=== PATIENT | female | born 1995 | race Caucasian/White ===

== ENCOUNTER 2019-06-29 16:46 | Inpatient (IN) ==
[2019-06-29] MEDS ORDERED: ACETAMINOPHEN 1,000 MG/100 ML VIAL IV STA (17:29)
[2019-06-29] MEDS ORDERED: DiphenhydrAMINE HCL 50 MG/ML VIAL IV STA (17:29)
[2019-06-29] MEDS ORDERED: PROCHLORPERAZINE 2 ML IV ONE (17:29)
[2019-06-29] MEDS ORDERED: SODIUM CHLORIDE 0.9% 1000ML 2,000 ML IV ONE (17:30)
--- NOTE | 2019-06-29 17:42 | Emergency Department Note ---
Impression & Plan Lower gastrointestinal hemorrhage, Syncope, Symptomatic anemia, Left lower quadrant abdominal pain ED Provider Note NAME: REFUGIO DAO AGE: 23 SEX: F ARRIVES VIA: Walk-In INFORMANT: Patient, ED PROVIDER(S): Jai Guerrero MD CHIEF COMPLAINT: Syncope, rectal bleeding PLAN: Disposition: Admit MEDICAL DECISION MAKING: The patient is a pleasant 23-year-old woman who presents emergency department with repeat episode of syncope in the setting of persistent bright red blood per rectum after developing symptoms yesterday with acute onset abdominal pain and cramping last night where she presented to the emergency department and was noted to have red blood on rectal exam with mild anemia that was stable, unremarkable CT scan of the abdomen pelvis, and improvement after IV fluid hydration with discharge with plan for outpatient follow-up. The patient reports this afternoon she was walking to the kitchen to get something to drink but became near syncopal and almost passed out but was able to sit down before this. However, at this time her friends and roommates helped walker to their car to drive her to the emergency department and in the process she reports she passed out as they were holding her and awoke as they were carrying her and lifting her into the car. The patient reports a remote history of heavy menstrual cycles approximately 6 years ago but has been on control ever since and reports her cycles are regular and normal in volume. She reports her last menstrual cycle was a month ago and she is due for her cycle at any time. She denies any family history of inflammatory bowel disease such as Crohn's or ulcerative colitis. She does say she has a history of intermittent abdominal pain and cramping but she has never actually had blood from her rectum. Prior to yesterday she reports she has been feeling healthy and denies any fevers, chills, cough, congestion, nausea, vomiting, diarrhea, urinary symptoms. On arrival the patient is fatigued and pale appearing but no acute distress, afebrile with heart rate in the 120s and vital signs otherwise stable. Patient appears clinically dry. She does have mild pallor to her skin which is warm and dry. Has no focal neuro deficits. She has mild left lower quadrant discomfort without discrete tenderness. There is no guarding or rebound. WBC and platelets within normal limits. H/H 7.8/23.0 downtrending from her initial H/H yesterday of 10.9/32.2 at 2 AM in the morning. Chemistry without acidosis. BUN within normal limits. Lactate 1.8 within normal limits. Calcium is low at 7.4 similar to yesterday. Electrolytes and LFTs otherwise unremarkable. ESR within normal limits with CRP elevated at 3.25. LDH within normal limits. Iron studies unremarkable. The patient's persistent rectal bleeding with symptomatic anemia/syncope reasonable to proceed with transfusion and admission for GI consultation. Suspect likely lower GI bleed given lack of melena and presence of lower abdominal pain. Patient was consented and the patient's evaluation and findings were discussed with the patient's mother who also agrees with plan for transfusion and admission. Of note, the mother reports that they are driving to [place] from [facility] where they live. They report they have remained in home quarantine/isolation and do not have any symptoms despite the high numbers of COVID-19 within their County. I did explain that ability to see their daughter will be quite limited and potentially not possible inpatient. Case was discussed with SREEDHAR Alvarado admitting resident with ISABELL Ortiz hospitalist, who will evaluate the patient for admission. Triage Nursing notes reviewed and agree them. Prior medical records reviewed Vital Signs: reviewed and remarkable for tachycardia. Differential diagnosis: Diverticulosis, AVM, coagulopathy, colitis, inflammatory bowel disease, malignancy, Carolyn-Myles tear, esophagitis, peptic ulcer disease, variceal bleed, gastritis, epistaxis, fissure, hemorrhoids, as well as other pathologies. ER treatment provided: See below. Diagnostics interpreted by me: ECG: Sinus tachycardia, 109 bpm, no ectopy. Nonspecific ST abnormality otherwise no overt ST elevation or depression. QTc 455, QRS 70. Cardiac Monitoring: An order for continuous cardiac monitoring was placed and demonstrated sinus tachycardia, 109, no ectopy. Laboratory studies: See below Imaging studies: XR chest 1V portable CLINICAL HISTORY: syncope dyspnea COMPARISON STUDY: No previous studies for comparison. FINDINGS: The bones soft tissues and hemidiaphragms are normal. The cardiomediastinal silhouette is normal. The lungs are clear. The pulmonary vasculature is normal. IMPRESSION: Negative chest. Consultation(s): Case was discussed with SREEDHAR Alvarado admitting resident with SREEDHAR Ortiz hospitalist, who will evaluate the patient for admission. HPI: The patient is a pleasant 23-year-old woman who presents emergency department with repeat episode of syncope in the setting of persistent bright red blood per rectum after developing symptoms yesterday with acute onset abdominal pain and cramping last night where she presented to the emergency department and was noted to have red blood on rectal exam with mild anemia that was stable, unremarkable CT scan of the abdomen pelvis, and improvement after IV fluid hydration with discharge with plan for outpatient follow-up. The patient reports this afternoon she was walking to the kitchen to get something to drink but became near syncopal and almost passed out but was able to sit down before this. However, at this time her friends and roommates helped walker to their car to drive her to the emergency department and in the process she reports she passed out as they were holding her and awoke as they were carrying her and lifting her into the car. The patient reports a remote history of heavy menstrual cycles approximately 6 years ago but has been on control ever since and reports her cycles are regular and normal in volume. She reports her last menstrual cycle was a month ago and she is due for her cycle at any time. She denies any family history of inflammatory bowel disease such as Crohn's or ulcerative colitis. She does say she has a history of intermittent abdominal pain and cramping but she has never actually had blood from her rectum. Prior to yesterday she reports she has been feeling healthy and denies any fevers, chills, cough, congestion, nausea, vomiting, diarrhea, urinary symptoms. ROS: See above HPI for pertinent positives & negatives. A total of 10 systems reviewed and were otherwise negative. PAST MEDICAL HISTORY:See Below PAST SURGICAL HISTORY:See Below FAMILY HISTORY:See Below SOCIAL HISTORY:See Below HOME MEDICATIONS:See Below ALLERGIES:See Below VITALS:See Below PHYSICAL EXAMINATION: GENERAL: Awake, alert, fatigued/pale-appearing, in no distress HENT: Normocephalic, atraumatic. Oropharynx with dry mucous membranes and otherwise unremarkable. EYES: Pale conjunctiva. Sclera non-icteric. NECK: Supple. No nuchal rigidity. FROM. No JVD. RESPIRATORY: Clear to auscultation. CARDIAC: Tachycardic rate, normal rhythm. Extremities warm and well perfused. Pulses equal. ABDOMEN: Soft, non-distended. Mild discomfort to the LLQ without discrete tenderness to palpation. No rebound or guarding. No masses. RECTAL: Gross red blood without severe hemorrhage. No melena. MUSCULOSKELETAL: Chest examination reveals no tenderness. The back is symme trical on inspection without obvious abnormality. There is no CVA tenderness to palpation. No joint edema. LOWER EXTREMITIES: Calves are equal size bilaterally and non-tender. No edema. No discoloration. NEURO: Normal sensorium. No sensory or motor deficits noted. 5/5 strength and SILT x 4 extremities. Cerebellar function intact including [id number], alternating palms, [id number]. SKIN: No rash or jaundice noted. ED COURSE: Critical Care: I have personally spent greater than 45 minutes of critical care time in the direct management of this patient. This includes bedside care, interpretation of diagnostic studies, and testing, discussion with consultants, patient, and family members, and other required patient management activities. This 45 minutes is in excess of all separately billable procedures. Jai Guerrero MD Past Med/Surg History Medical History No significant past medical history Surgical History History of knee surgery Social History Preferred Language: Kazakh Communication Ability: Effective Inverted Block Operator Required: No Beliefs That Will Affect Care: None Current Living Situation: Other Current Living Situation Comment: roommate here, moving home with family soon Other Information That Helps Us Care for You: No Feels Safe at Home: Yes Safety Concerns: Feels Safe At This Time Smoking Status: Never smoker Do You Dip or Chew Tobacco: No ; Second Hand Exposure: No ; Tobacco Cessation Education Requested by Patient: No Hx Alcohol Use: Yes Alcohol type: wine and hard liquor Hx Substance Use: No Allergies Allergies Allergy/AdvReac Type Severity Reaction Status Date / Time No Known Allergies Allergy Verified 06/29/19 17:51 Home Meds Home Medications Medication Instructions Recorded Confirmed norethindrone-e.estradiol-iron 1 tab PO DAILY 06/29/19 06/29/19 [Mibelas 24 Fe] Results & Data (ED) Vital Signs Vital Signs - 24 hr 06/29/19 16:54 06/29/19 18:15 06/29/19 18:26 Temperature 36.7 C Temperature Source Oral Pulse Rate 123 H 134 H 90 Pulse Rate from SpO2 Sensor Pulse Rhythm Regular Respiratory Rate 16 17 20 Respiratory Effort / Characteristics Non-Labored Spontaneous Respiratory Depth Normal Blood Pressure 110/70 124/72 Blood Pressure Mean 83 89 Blood Pressure Position Sitting Pulse Oximetry 99 100 99 Oxygen Delivery Method Room Air Room Air Room Air Sepsis Recent Fever Within 48 Hours No Sepsis New/Unexplained Change in Mental Status No Sepsis Action Taken by Nursing No Action Required 06/29/19 18:30 06/29/19 19:00 06/29/19 19:30 Temperature Temperature Source Pulse Rate 89 88 117 H Pulse Rate from SpO2 Sensor 91 H 90 119 H Pulse Rhythm Respiratory Rate 13 15 17 Respiratory Effort / Characteristics Respiratory Depth Blood Pressure 122/67 118/62 133/72 Blood Pressure Mean 93 73 88 Blood Pressure Position Pulse Oximetry 100 100 99 Oxygen Delivery Method Room Air Room Air Room Air Sepsis Recent Fever Within 48 Hours Sepsis New/Unexplained Change in Mental Status Sepsis Action Taken by Nursing 06/29/19 19:40 Temperature Temperature Source Pulse Rate 108 H Pulse Rate from SpO2 Sensor 106 H Pulse Rhythm Respiratory Rate 19 Respiratory Effort / Characteristics Respiratory Depth Blood Pressure 129/68 Blood Pressure Mean 83 Blood Pressure Position Pulse Oximetry 99 Oxygen Delivery Method Room Air Sepsis Recent Fever Within 48 Hours Sepsis New/Unexplained Change in Mental Status Sepsis Action Taken by Nursing Laboratory Data Attestation: I reviewed the patient's lab results. Result diagrams: 06/29/19 21:35 06/29/19 17:34 Lab Results 06/29/19 06/29/19 06/29/19 Range/Units 17:34 17:34 17:34 WBC 8.87 (4.8-10.8) K/uL RBC 2.48 L (4.2-5.4) M/uL Hgb 7.8 L (12.0-16.0) g/dL Hct 23.0 L (37-47) % MCV 92.7 (80-100) fL MCH 31.5 (25-34) pg MCHC 33.9 (32-36) g/dL RDW Std Deviation 42.6 (36.4-46.3) fL RDW Coeff of Gertrudis 12.4 (11.5-14.5) % Plt Count 201 (130-400) K/uL MPV 9.7 (7.4-10.4) fL Immature Gran % (Auto) 0.1 % Neut % (Auto) 76.5 % Lymph % (Auto) 15.2 % [place] % (Auto) 7.7 % Eos % (Auto) 0.3 % Baso % (Auto) 0.2 % Immature Gran # (Auto) 0.01 (0.00-0.02) K/uL Neut # (Auto) 6.78 H (1.4-6.5) K/uL Lymph # (Auto) 1.35 (1.2-3.4) K/uL [place] # (Auto) 0.68 H (0.11-0.59) K/uL Eos # (Auto) 0.03 (0-0.5) K/uL Baso # (Auto) 0.02 (0-0.2) K/uL RBC Morphology Unremarkable ESR (0-21) mm/hr PT (9.0-12.0) Seconds INR (0.9-1.1) Sodium 140 (136-145) mmol/L Potassium 3.7 (3.5-5.1) mmol/L Chloride 111 H (98-107) mmol/L Carbon Dioxide 21 (21-32) mmol/L Anion Gap 7.0 (3-11) BUN 11 (7-18) mg/dl Creatinine 0.84 (0.6-1.2) mg/dl Est Cr Clr Drug Dosing Not Reportable Est GFR ( Amer) 115.1 Est GFR (Non-Af Amer) 99.4 BUN/Creatinine Ratio 13.0 (10-20) Glucose 119 H (70-99) mg/dl Lactate (0.4-2.0) mmol/L Calcium 7.4 L (8.5-10.1) mg/dl Phosphorus 2.9 (2.5-4.9) mg/dl Magnesium 1.9 (1.8-2.4) mg/dl Iron 108 (35-150) mcg/dl TIBC 285 (250-450) mcg/dl Transferrin 236 (200-360) mg/dl Ferritin 8.7 (8-388) ng/ml Total Bilirubin 0.3 (0.2-1) mg/dl Direct Bilirubin < 0.1 (0-0.2) mg/dl AST 11 L (15-37) U/L ALT 15 (12-78) U/L Alkaline Phosphatase 66 (45-117) U/L Lactate Dehydrogenase (84-246) U/L C-Reactive Protein 3.25 H (0-0.29) mg/dl Total Protein 5.5 L (6.4-8.2) gm/dl Albumin 2.7 L (3.4-5.0) gm/dl Globulin 2.8 (2.5-4.0) gm/dl Albumin/Globulin Ratio 1.0 (0.9-2) Lipase 93 (73-393) U/L TSH 1.390 (0.300-4.500) uIu/ml HCG, Qual (Negative) Blood Type O Negative Blood Type Recheck Antibody Screen NEGATIVE Crossmatch See Detail 06/29/19 06/29/19 06/29/19 Range/Units 17:34 17:34 17:34 WBC (4.8-10.8) K/uL RBC (4.2-5.4) M/uL Hgb (12.0-16.0) g/dL Hct (37-47) % MCV (80-100) fL MCH (25-34) pg MCHC (32-36) g/dL RDW Std Deviation (36.4-46.3) fL RDW Coeff of Gertrudis (11.5-14.5) % Plt Count (130-400) K/uL MPV (7.4-10.4) fL Immature Gran % (Auto) % Neut % (Auto) % Lymph % (Auto) % [place] % (Auto) % Eos % (Auto) % Baso % (Auto) % Immature Gran # (Auto) (0.00-0.02) K/uL Neut # (Auto) (1.4-6.5) K/uL Lymph # (Auto) (1.2-3.4) K/uL [place] # (Auto) (0.11-0.59) K/uL Eos # (Auto) (0-0.5) K/uL Baso # (Auto) (0-0.2) K/uL RBC Morphology ESR 2 (0-21) mm/hr PT 11.3 (9.0-12.0) Seconds INR 1.1 (0.9-1.1) Sodium (136-145) mmol/L Potassium (3.5-5.1) mmol/L Chloride (98-107) mmol/L Carbon Dioxide (21-32) mmol/L Anion Gap (3-11) BUN (7-18) mg/dl Creatinine (0.6-1.2) mg/dl Est Cr Clr Drug Dosing Est GFR ( Amer) Est GFR (Non-Af Amer) BUN/Creatinine Ratio (10-20) Glucose (70-99) mg/dl Lactate (0.4-2.0) mmol/L Calcium (8.5-10.1) mg/dl Phosphorus (2.5-4.9) mg/dl Magnesium (1.8-2.4) mg/dl Iron (35-150) mcg/dl TIBC (250-450) mcg/dl Transferrin (200-360) mg/dl Ferritin (8-388) ng/ml Total Bilirubin (0.2-1) mg/dl Direct Bilirubin (0-0.2) mg/dl AST (15-37) U/L ALT (12-78) U/L Alkaline Phosphatase (45-117) U/L Lactate Dehydrogenase 157 (84-246) U/L C-Reactive Protein (0-0.29) mg/dl Total Protein (6.4-8.2) gm/dl Albumin (3.4-5.0) gm/dl Globulin (2.5-4.0) gm/dl Albumin/Globulin Ratio (0.9-2) Lipase (73-393) U/L TSH (0.300-4.500) uIu/ml HCG, Qual (Negative) Blood Type Blood Type Recheck Antibody Screen Crossmatch 06/29/19 06/29/19 06/29/19 Range/Units 17:34 17:49 19:42 WBC (4.8-10.8) K/uL RBC (4.2-5.4) M/uL Hgb (12.0-16.0) g/dL Hct (37-47) % MCV (80-100) fL MCH (25-34) pg MCHC (32-36) g/dL RDW Std Deviation (36.4-46.3) fL RDW Coeff of Gertrudis (11.5-14.5) % Plt Count (130-400) K/uL MPV (7.4-10.4) fL Immature Gran % (Auto) % Neut % (Auto) % Lymph % (Auto) % [place] % (Auto) % Eos % (Auto) % Baso % (Auto) % Immature Gran # (Auto) (0.00-0.02) K/uL Neut # (Auto) (1.4-6.5) K/uL Lymph # (Auto) (1.2-3.4) K/uL [place] # (Auto) (0.11-0.59) K/uL Eos # (Auto) (0-0.5) K/uL Baso # (Auto) (0-0.2) K/uL RBC Morphology ESR (0-21) mm/hr PT (9.0-12.0) Seconds INR (0.9-1.1) Sodium (136-145) mmol/L Potassium (3.5-5.1) mmol/L Chloride (98-107) mmol/L Carbon Dioxide (21-32) mmol/L Anion Gap (3-11) BUN (7-18) mg/dl Creatinine (0.6-1.2) mg/dl Est Cr Clr Drug Dosing Est GFR ( Amer) Est GFR (Non-Af Amer) BUN/Creatinine Ratio (10-20) Glucose (70-99) mg/dl Lactate 1.8 (0.4-2.0) mmol/L Calcium (8.5-10.1) mg/dl Phosphorus (2.5-4.9) mg/dl Magnesium (1.8-2.4) mg/dl Iron (35-150) mcg/dl TIBC (250-450) mcg/dl Transferrin (200-360) mg/dl Ferritin (8-388) ng/ml Total Bilirubin (0.2-1) mg/dl Direct Bilirubin (0-0.2) mg/dl AST (15-37) U/L ALT (12-78) U/L Alkaline Phosphatase (45-117) U/L Lactate Dehydrogenase (84-246) U/L C-Reactive Protein (0-0.29) mg/dl Total Protein (6.4-8.2) gm/dl Albumin (3.4-5.0) gm/dl Globulin (2.5-4.0) gm/dl Albumin/Globulin Ratio (0.9-2) Lipase (73-393) U/L TSH (0.300-4.500) uIu/ml HCG, Qual Negative (Negative) Blood Type Blood Type Recheck O Negative Antibody Screen Crossmatch Administered Medications Pantoprazole Sodium 40 mg/ (Dextrose) 100 mls @ 20 mls/hr IV Q5H ELVIRA Stop: 07/29/19 20:44 Last Admin: 06/29/19 23:24 Dose: 8 mg/hr, 20 mls/hr Documented by: [id number] Sodium Chloride (Nss 1000ml) 1,000 mls @ 125 mls/hr IV .Q8H ELVIRA Stop: 07/29/19 21:13 Last Admin: 06/29/19 21:53 Dose: 125 mls/hr Documented by: [id number] Miscellaneous (Order Awaiting Action) 1 ea N/A QS ELVIRA Stop: 07/30/19 00:00 Last Admin: 06/29/19 23:27 Dose: Not Given Documented by: [id number] Discontinued Medications Diphenhydramine HCl (Benadryl) 25 mg IV NOW STA Stop: 06/29/19 17:30 Last Admin: 06/29/19 18:04 Dose: 25 mg Documented by: [id number] Prochlorperazine (Compazine) 2 mls @ 1 mls/min IV ONE ONE Stop: 06/29/19 17:30 Last Admin: 06/29/19 18:04 Dose: 1 mls/min Documented by: [id number] Acetaminophen (Ofirmev) 1,000 mg in 100 mls @ 400 mls/hr IV NOW STA Stop: 06/29/19 17:43 Last Infusion: 06/29/19 18:24 Dose: 0 mls/hr Documented by: [id number] Admin: 06/29/19 18:04 Dose: 400 mls/hr Documented by: [id number] Sodium Chloride (Nss 1000ml) 2,000 mls @ 999 mls/hr IV .Q2H1M ONE Stop: 06/29/19 19:30 Last Infusion: 06/29/19 19:51 Dose: 0 mls/hr Documented by: [id number] Admin: 06/29/19 18:04 Dose: 999 mls/hr Documented by: [id number] Famotidine (Pepcid 20mg Iv Push) 20 mg in 5 mls @ 2.5 mls/min IV NOW STA Stop: 06/29/19 18:54 Last Admin: 06/29/19 19:02 Dose: 2.5 mls/min Documented by: [id number] Blood Pressure Blood Pressure Findings: Normal blood pressure Discharge Plan Visit Data *Final* Discharge Date/Time: 06/29/19 21:00 Chief Complaint: GI Bleed Stated Complaint: gi bleed, fainting ED Provider: Jai Guerrero Discharge Problem: Lower gastrointestinal hemorrhage, Syncope, Symptomatic anemia, Left lower quadrant abdominal pain Patient Disposition: Admitted As Inpatient Discharge Instructions Interventions: ED Discharge Assessment Last Done: 06/29/19 21:00 Discharge Problem: Syncope Qualifiers: Syncope type: unspecified Qualified Code(s): R55 - Syncope and collapse
[2019-06-29 18:00] LABS: Basophils # (auto) 0.02 K/uL (0-0.2); Basophils % (auto) 0.2 %; Eosinophils # (auto) 0.03 K/uL (0-0.5); Eosinophils % (auto) 0.3 %; Hemoglobin 7.8 g/dL (12.0-16.0); Immature Granulocytes # (auto) 0.01 K/uL (0.00-0.02); Immature Granulocytes % (auto) 0.1 %; Lymphocytes # (auto) 1.35 K/uL (1.2-3.4); Lymphocytes % (auto) 15.2 %; Mean Corpuscular Hemoglobin 31.5 pg (25-34); Mean Corpuscular Hgb Conc 33.9 g/dL (32-36); Mean Corpuscular Volume 92.7 fL (80-100); Mean Platelet Volume 9.7 fL (7.4-10.4); Monocytes # (auto) 0.68 K/uL (0.11-0.59); Monocytes % (auto) 7.7 %; Neutrophils # (auto) 6.78 K/uL (1.4-6.5); Neutrophils % (auto) 76.5 %; Platelet Count 201 K/uL (130-400); RDW Coefficient of Variation 12.4 % (11.5-14.5); RDW Standard Deviation 42.6 fL (36.4-46.3); Red Blood Count 2.48 M/uL (4.2-5.4); White Blood Count 8.87 K/uL (4.8-10.8)
[2019-06-29 18:11] LABS: INR 1.1 (0.9-1.1); Prothrombin Time 11.3 Seconds (9.0-12.0)
[2019-06-29 18:23] LABS: Pregnancy Test, Serum Negative (Negative)
[2019-06-29 18:24] LABS: RBC Morphology Unremarkable
[2019-06-29 18:26] LABS: Alanine Aminotransferase 15 U/L (12-78); Albumin Level 2.7 gm/dl (3.4-5.0); Aspartate Aminotransferase 11 U/L (15-37); Bilirubin Direct < 0.1 mg/dl (0-0.2); Blood Urea Nitrogen 11 mg/dl (7-18); C Reactive Protein 3.25 mg/dl (0-0.29); Calcium 7.4 mg/dl (8.5-10.1); Carbon Dioxide 21 mmol/L (21-32); Chloride 111 mmol/L (98-107); Est GFR (African American) 115.1; Est GFR (Non-African American) 99.4; Glucose 119 mg/dl (70-99); Iron 108 mcg/dl (35-150); Lipase 93 U/L (73-393); Magnesium 1.9 mg/dl (1.8-2.4); Phosphorus 2.9 mg/dl (2.5-4.9); Potassium 3.7 mmol/L (3.5-5.1); Sodium 140 mmol/L (136-145)
--- NOTE | 2019-06-29 18:27 | XRay Report ---
XR chest 1V portable CLINICAL HISTORY: syncope dyspnea COMPARISON STUDY: No previous studies for comparison. FINDINGS: The bones soft tissues and hemidiaphragms are normal. The cardiomediastinal silhouette is n ormal. The lungs are clear. The pulmonary vasculature is normal. IMPRESSION: Negative chest. ACT 112: Negative or not required by law. The above report was generated using voice recognition software. It may contain grammatical, syntax or spelling errors. Electronically signed by: Joshua Baez M.D. 06/29/2019 6:26 PM
[2019-06-29 18:36] LABS: Alkaline Phosphatase 66 U/L (45-117); Bilirubin,Total 0.3 mg/dl (0.2-1); Ferritin 8.7 ng/ml (8-388); Globulin 2.8 gm/dl (2.5-4.0); Total Iron Binding Capacity 285 mcg/dl (250-450); Total Protein 5.5 gm/dl (6.4-8.2); Transferrin 236 mg/dl (200-360)
[2019-06-29] MEDS ORDERED: SODIUM CHLORIDE 0.9% 250 ML IV PRN (18:52)
[2019-06-29] MEDS ORDERED: FAMOTIDINE 20MG IV PUSH 20 MG/5 ML SYR IV STA (18:53)
--- NOTE | 2019-06-29 20:14 | History & Physical Report ---
Date of Service June 29, 2019 Assessment & Plan (1) Bright red rectal bleeding: Ms. Malik is a 23-year-old woman with otherwise insignificant past medical history who is here with 1 day of GI bleeding Bright red blood per rectum Patient with GI bleed starting last night Hemoglobin dropped from10.9-7.8 over the last 15 hours Patient no longer having bloody bowel movements, but does still have some bright red blood on rectal exam In this patient who initially had abdominal pain which is now resolved differential includes diverticulosis, diverticulitis, infectious cause (E hack, Shigella, C. difficile), AVM, hemorrhoidal bleeding, inflammatory bowel disease or brisk upper GI bleed Labwork significant for anemia 7.8 elevated CRP of 3.25 hypoalbuminemia of 2.7 and a - test C. difficile, stool culture, stool white blood cell, PTT pending 2 large-bore IVs placed, 3 units crossed transfusing 1 now Protonix drip ordered GI consulted for a.m. as patient appears to be relatively stable We will get every 4 hour H&H's and watch vital signs closely. Orthostatics ordered on admission to the floor Patient will be admitted to med telemetry DVT prophylaxis: SCDs F/C/N: Normal saline 100 mils per hour Disposition: Admit to med telemetry, every 4 hours H&H, waiting GI consult in a.m., if patient were to clinically deteriorate we will get stat GI consult tonight (2) Syncope: History of Present Illness Chief Complaint: Rectal Bleeding Primary Care Provider: NO PCP Alicia Andrade is a 23 year old woman with a past medical history significant only for a torn ACL which was operated on without incident and heavy periods which were corrected several years ago by going on control pill. She is he re today for rectal bleeding. Last night around eight o clock she was in in her usual state of health when she had an episode of abdominal pain across the entirety of her abdomen. She tried to sleep it off but woke up around 11 pm and went to the bathroom. She then suffered a syncopal episode and felt very light headed continuously on getting up. When she made it to the bathroom she felt nauseous and like she had diarrhea, but when she checked the toilet bowl it was a large amount of blood. Her abdominal pain was relieved by this passage and she came into the emergency department. Hemoglobin was found to be in the 10's and in the high nines a short time later and she was sent home with planned GI follow up. CT abdomen was negative. She then had a subsequent bloody bowel movement today and continues to feel lightheaded on standing. She denies any anal intercourse or penetration nor any vaginal intercourse, no vaginal bleeding, last menstruation was one month ago due for next tomorrow. No history of bleeding or dark stools ever before. No known history of hemorrhoids. She denies any other symptoms at this time, no abdominal pain, no nausea, no vomiting, no trouble with her breathing, fever, chills, no chest pain, no leg or hand swelling, no change in her urination, no hematuria, no bruising or other bleeding, no history of bleeding issues. Allergies Allergy/AdvReac Type Severity Reaction Status Date / Time No Known Allergies Allergy Verified 06/29/19 17:51 Home Medications Home Medications Medication Instructions Recorded Confirmed Type norethindrone-e.estradiol-iron 1 tab PO DAILY 06/29/19 06/29/19 History [Mibelas 24 Fe] Past Med/Surg History Medical History No significant past medical history Surgical History History of knee surgery History of third molar tooth extraction S/P ACL repair Social History Preferred Language: Thai Communication Ability: Effective Microchip Specialist Required: No Beliefs That Will Affect Care: None Current Living Situation: Other Current Living Situation Comment: roommate here, moving home with family soon Other Information That Helps Us Care for You: No Feels Safe at Home: Yes Safety Concerns: Feels Safe At This Time Smoking Status: Never smoker Do You Dip or Chew Tobacco: No ; Second Hand Exposure: No ; Tobacco Cessation Education Requested by Patient: No Hx Alcohol Use: Yes Alcohol type: wine and hard liquor Hx Substance Use: No Review of Systems Review of Systems: All systems reviewed & are unremarkable except as noted in HPI & below Physical Exam Physical Exam: Constitutional: Pale fatigued appearing young woman lying in bed in no apparent distress Eyes: NAD ENMT: None detected Neck: Supple no masses, no JVD appreciated Respiratory: No increased work of breathing, no accessory muscle use, lung sounds vesicular throughout the lung holcomb Cardiovascular: Holosystolic murmur present, tachycardic regular rhythm, no lower limb edema, peripheral pulses tachycardic but equal bilaterally Gastrointestinal: Abdomen soft nontender, normal bowel sounds, no masses, patient with some suprapubic discomfort however patient tells me is because I am pressing on her full bladder Skin: Peripheries warm, no wounds or lesions visible Neuro: Patient alert oriented x4, no focal deficits Psych: Appropriate mood and affect Results & Data Results & Data ([facility]) Vital Signs (Past 12 Hours) Vital Signs Temp Pulse Resp BP Pulse Ox 06/29/19 19:40 108 H 19 129/68 99 06/29/19 19:30 117 H 17 133/72 99 06/29/19 19:00 88 15 118/62 100 06/29/19 18:30 89 13 122/67 100 06/29/19 18:26 90 20 99 06/29/19 18:15 134 H 17 124/72 100 06/29/19 16:54 36.7 C 123 H 16 110/70 99 Code Status & VTE Plan VTE Prophylaxis Plan VTE Prophylaxis will be ordered: Yes Supervising Physician Co-Signing Physician Notes Attending addendum: I have physically seen this patient, have supervised the medical residents activities, and agree with the H&P unless as otherwise noted. Assessment and Plan: Bright red blood per rectum/symptomatic anemia- Admit to telemetry for close monitoring of blood pressure and heart rate. H&H every 6 hours NPO IV fluids Send stool for culture, C. difficile, WBCs and foodborne toxins. Protonix IV. Consult gastroenterology. Remainder of orders and notations as noted. Resident Activity Tracking Resident Involvement: Resident Care Provided Care Provided: Adult Hospital Medicine (1) Syncope Syncope type: unspecified Qualified Code(s): R55 - Syncope and collapse
[2019-06-29 20:58] LABS: Appearance Urine Cloudy (Clear); Bacteria Urine Automated Negative (Negative); Bilirubin Urine Negative (Negative); Blood Urine Negative (Negative); Color Urine Yellow; Epithelial Cell Urine Auto 0-5 /lpf (0-5); Glucose Urine UA Negative (Negative); Ketones Urine Negative (Negative); Leukocyte Esterase Urine Negative (Negative); Nitrite Urine Negative (Negative); Protein Urine Negative (Negative); RBC Urine Automated 0-4 /hpf (0-4); Specific Gravity Urine 1.012 (1.000-1.030); Urobilinogen Urine Negative (Negative)
[2019-06-29] MEDS: SODIUM CHLORIDE 0.9% 1000ML 1,000 ML IV SCH (21:53)
[2019-06-29 21:56] LABS: Partial Thromboplastin Ratio 0.8; Partial Thromboplastin Time 23.6 Seconds (21.0-31.0)
[2019-06-29 21:59] LABS: Hematocrit (blood only) 19.5 % (37-47); Hemoglobin 6.5 g/dL (12.0-16.0)
[2019-06-29] MEDS: PANTOprazole 40 MG in DEXTROSE 5% 100 ML IV SCH (23:24)
[2019-06-30] MEDS ORDERED: Nursing to Pharmacy Communication ONE (00:24)
[2019-06-30] MEDS: PANTOprazole 40 MG in DEXTROSE 5% 100 ML IV SCH ×2 (04:01→08:25)
[2019-06-30] MEDS: SODIUM CHLORIDE 0.9% 1000ML 1,000 ML IV SCH ×3 (05:48→22:25)
[2019-06-30 05:50] LABS: Basophils # (auto) 0.01 K/uL (0-0.2); Basophils % (auto) 0.2 %; Eosinophils # (auto) 0.07 K/uL (0-0.5); Eosinophils % (auto) 1.2 %; Hematocrit (blood only) 21.5 % (37-47); Hemoglobin 7.4 g/dL (12.0-16.0); Immature Granulocytes # (auto) 0.01 K/uL (0.00-0.02); Immature Granulocytes % (auto) 0.2 %; Lymphocytes # (auto) 2.17 K/uL (1.2-3.4); Lymphocytes % (auto) 37.2 %; Mean Corpuscular Hemoglobin 31.6 pg (25-34); Mean Corpuscular Hgb Conc 34.4 g/dL (32-36); Mean Corpuscular Volume 91.9 fL (80-100); Mean Platelet Volume 9.4 fL (7.4-10.4); Monocytes # (auto) 0.55 K/uL (0.11-0.59); Monocytes % (auto) 9.4 %; Neutrophils # (auto) 3.02 K/uL (1.4-6.5); Neutrophils % (auto) 51.8 %; Platelet Count 121 K/uL (130-400); RDW Coefficient of Variation 13.4 % (11.5-14.5); RDW Standard Deviation 45.1 fL (36.4-46.3); Red Blood Count 2.34 M/uL (4.2-5.4); White Blood Count 5.83 K/uL (4.8-10.8)
[2019-06-30 06:10] LABS: RBC Morphology Unremarkable
--- NOTE | 2019-06-30 08:43 | Gastrointestinal Consultation ---
Date of Consultation June 30, 2019 Assessment & Plan (1) Bright red rectal bleeding: (2) Acute blood loss anemia: (3) Abdominal pain, diffuse: Continue Protonix gtt at 8 mg/hr Proceed with emergent EGD now Transfuse to maintain H/H around 8/24 Continue supportive care History of Present Illness Reason for Consultation: Acute blood loss anemia GI bleed Attending Physician: Gustavo Velez DO History of Present Illness Alicia Andrade is a 23 yo female whit no significant PMHx who presented to the ER with syncope, abdominal pain and acute blood loss anemia with large bloody BM's. On initial presentation her Hgb was 10.9, however repeat showed a level as low as 6.5. She described 10/10 abdominal pain, diffuse, non-radiating without alleviating or exacerbating factors. She did have multiple syncopal episodes in the past [address] scan of the Abd/Pelvis in the ER was unremarkable. She denies any NSAID use. She was admitted, transfused 2 u PRBC's, given IVF, and started on a Protonix gtt. At the time I saw her this AM, she denies any abdominal pain, fevers, chills, nausea, vomiting, hematemesis or further bloody BM's since her arrival. She denies any chronic abdominal symptoms. She has no further complaints. Allergies Allergy/AdvReac Type Severity Reaction Status Date / Time No Known Allergies Allergy Verified 06/29/19 17:51 Home Medications Home Medications Medication Instructions Recorded Confirmed Type norethindrone-e.estradiol-iron 1 tab PO DAILY 06/29/19 06/29/19 History [Mibelas 24 Fe] Patient History Medical History (Updated 06/30/19 @ 09:12 by Susu Baker MD) No significant past medical history Surgical History (Updated 06/30/19 @ 09:14 by Reji Chicas DO) History of knee surgery History of third molar tooth extraction S/P ACL repair Social History Preferred Language: [place] Communication Ability: Effective Maintenance Helper Required: No Beliefs That Will Affect Care: None Current Living Situation: Other Current Living Situation Comment: roommate here, moving home with family soon Other Information That Helps Us Care for You: No Feels Safe at Home: Yes Safety Concerns: Feels Safe At This Time Smoking Status: Never smoker Do You Dip or Chew Tobacco: No ; Second Hand Exposure: No ; Tobacco Cessation Education Requested by Patient: No Hx Alcohol Use: Yes Alcohol type: wine and hard liquor Hx Substance Use: No Review of Systems Review of Systems: All systems reviewed & are unremarkable except as noted in HPI & below Physical Exam Constitutional: WD/WN, vitals as above Eyes: PERRL, conjunctivae normal, anicteric sclerae ENMT: external ear and nose normal, oropharynx normal Neck: trachea midline, no thyromegaly Respiratory: normal respiratory effort, lungs clear to auscultation Cardiovascular: RRR, no murmur, no edema Gastrointestinal (Abdomen): normal bowel sounds, soft, nontender, no hepatosplenomegaly Skin: no rashes, warm and dry Psychiatric: A+Ox3, euthymic affect Results & Data ([facility]) Vital Signs (Past 12 Hours) Vital Signs Temp Pulse Pulse Resp BP BP BP 06/30/19 07:24 83 06/30/19 07:13 37 C 98 H 16 112/70 06/30/19 03:12 37 C 105 H 16 109/69 06/30/19 02:55 36.8 C 102 H 18 111/72 06/30/19 01:55 37.2 C 105 H 17 107/71 06/30/19 01:25 37.6 C H 97 H 18 111/73 06/30/19 01:08 37.0 C 92 H 16 117/68 06/30/19 00:53 37.1 C 99 H 16 114/73 06/30/19 00:48 37 C 107 H 16 122/75 06/30/19 00:40 37 C 107 H 18 122/75 06/30/19 00:10 37 C 107 H 18 122/75 06/29/19 23:40 36.8 C 101 H 18 119/80 06/29/19 23:10 36.7 C 101 H 99 H 17 119/77 119/77 06/29/19 22:40 36.7 C 99 H 18 125/79 06/29/19 22:25 36.9 C 101 H 18 123/78 06/29/19 22:04 36.8 C 105 H 18 118/80 06/29/19 22:02 110 H 06/29/19 21:15 37.1 C 105 H 18 120/82 Pulse Ox 06/30/19 07:24 06/30/19 07:13 98 06/30/19 03:12 100 06/30/19 02:55 100 06/30/19 01:55 100 06/30/19 01:25 100 06/30/19 01:08 99 06/30/19 00:53 98 06/30/19 00:48 98 06/30/19 00:40 98 06/30/19 00:10 98 06/29/19 23:40 97 06/29/19 23:10 99 06/29/19 22:40 98 06/29/19 22:25 99 06/29/19 22:04 99 06/29/19 22:02 06/29/19 21:15 99 PG Care Time/CCT Total # of Minutes Spent Total Time Spent with Patient: Total time spent is greater than 50% in coordination of care (as documented) at patient's floor/unit and/or counseling patient: Coding Level of Care Code 47299 Inpt Consult Level 4 Diagnoses Bright red rectal bleeding K62.5 Acute blood loss anemia D62 Abdominal pain, diffuse R10.84
--- NOTE | 2019-06-30 09:12 | Anesthesiology Consultation ---
Date of Service June 30, 2019 Assessment & Plan (1) Encounter for pre-operative examination: Chart Review Chart Review: Acceptable Risk for Surgery and Patient NOT seen in Pre Admission Testing Consults Requested none History Surgery Operation Date: 06/30/19 08:30 Proposed Procedures p Esophagogastroduodenoscopy Dr Juan Francisco Priest Case, DO Height/Weight Height: 5 ft 9 in Weight: 81.4 kg Allergies Allergy/AdvReac Type Severity Reaction Status Date / Time No Known Allergies Allergy Verified 06/29/19 17:51 Medications Home Medications Medication Instructions Recorded Confirmed Last Taken norethindrone-e.estradiol-iron 1 tab PO DAILY 06/29/19 06/29/19 Unknown [Mibelas 24 Fe] Active Medications Generic Name Dose Route Start Last Admin Trade Name Freq PRN Reason Stop Dose Admin Pantoprazole Sodium 40 mg/ 100 mls @ 20 mls/hr 06/29/19 20:45 06/30/19 08:25 Dextrose IV 07/29/19 20:44 8 mg/hr Q5H ELVIRA 20 mls/hr Administration 8 MG/HR Sodium Chloride 1,000 mls @ 125 mls/hr 06/29/19 21:14 06/30/19 05:48 Nss 1000ml IV 07/29/19 21:13 125 mls/hr .Q8H ELVIRA Administration Miscellaneous 1 ea 06/30/19 00:00 06/30/19 08:25 Order Awaiting Action N/A 07/30/19 00:00 Not Given QS ELVIRA Past Medical History Medical History No significant past medical history Past Surgical History Surgical History History of knee surgery Social History Smoking Status: Never smoker Do You Dip or Chew Tobacco: No Hx Alcohol Use: Yes Alcohol type: wine and hard liquor alcohol intake frequency: a few times a month Hx Substance Use: No substance use type: does not use Physical Exam Vital Signs Last Vital Signs Temp 37 C 06/30/19 07:13 Pulse 83 06/30/19 07:24 Resp 16 06/30/19 07:13 BP 112/70 06/30/19 07:13 Pulse Ox 98 06/30/19 07:13 Testing Laboratory Results 06/30/19 05:38 06/29/19 17:34 PT 11.3 Seconds (9.0-12.0) 06/29/19 17:34 INR 1.1 (0.9-1.1) 06/29/19 17:34 APTT 23.6 Seconds (21.0-31.0) 06/29/19 21:35 Urine Color Yellow 06/29/19 20:50 Urine Appearance Cloudy (Clear) A 06/29/19 20:50 Urine pH 5.0 (4.5-7.5) 06/29/19 20:50 Ur Specific [place] 1.012 (1.000-1.030) 06/29/19 20:50 Urine Protein Negative (Negative) 06/29/19 20:50 Urine Glucose (UA) Negative (Negative) 06/29/19 20:50 Urine Ketones Negative (Negative) 06/29/19 20:50 Urine Nitrite Negative (Negative) 06/29/19 20:50 Ur Leukocyte Esterase Negative (Negative) 06/29/19 20:50 Urine WBC (Auto) 1-5 /hpf (0-5) 06/29/19 20:50 Urine RBC (Auto) 0-4 /hpf (0-4) 06/29/19 20:50 U Hyaline Cast (Auto) 1-5 /lpf (0-5) 06/29/19 20:50 U Epithel Cells (Auto) 0-5 /lpf (0-5) 06/29/19 20:50 Urine Bacteria (Auto) Negative (Negative) 06/29/19 20:50 Blood Type O Negative 06/29/19 17:34 Antibody Screen NEGATIVE 06/29/19 17:34 06/29/19 Unknown WBC Smear - Final Stool
[2019-06-30] MEDS ORDERED: PROPOFOL IV EMULSION 10 MG/ML 20 ML VIAL IV ONE ×2 (09:13→09:33)
[2019-06-30] MEDS ORDERED: LIDOCAINE HCL 2% 2 ML VIAL/AMP(20MG/ML) INFIL ONE (09:13)
--- NOTE | 2019-06-30 09:13 | Anesthesiology Consultation ---
Date of Service June 30, 2019 Assessment & Plan Chart Review Chart Review: Acceptable Risk for Surgery Consults Requested none ASA ASA2 Proposed Anesthesia Anesthesia Type: MAC Risk / Benefits Reviewed With: PT / POA / Parent / Guardian, Accepts Plan and Informed Consent Obtained History Surgery Operation Date: 06/30/19 08:30 Proposed Procedures p Esophagogastroduodenoscopy Dr Juan Francisco Chicas, DO Height/Weight Height: 5 ft 9 in Weight: 81.4 kg Allergies Allergy/AdvReac Type Severity Reaction Status Date / Time No Known Allergies Allergy Verified 06/29/19 17:51 Medications Home Medications Medication Instructions Recorded Confirmed Last Taken norethindrone-e.estradiol-iron 1 tab PO DAILY 06/29/19 06/29/19 Unknown [Mibelas 24 Fe] Active Medications Generic Name Dose Route Start Last Admin Trade Name Freq PRN Reason Stop Dose Admin Pantoprazole Sodium 40 mg/ 100 mls @ 20 mls/hr 06/29/19 20:45 06/30/19 08:25 Dextrose IV 07/29/19 20:44 8 mg/hr Q5H ELVIRA 20 mls/hr Administration 8 MG/HR Sodium Chloride 1,000 mls @ 125 mls/hr 06/29/19 21:14 06/30/19 05:48 Nss 1000ml IV 07/29/19 21:13 125 mls/hr .Q8H ELVIRA Administration Miscellaneous 1 ea 06/30/19 00:00 06/30/19 08:25 Order Awaiting Action N/A 07/30/19 00:00 Not Given QS ELVIRA Past Medical History Medical History No significant past medical history Exercise / Class Metabolic Activity II 4-5 Yardwork/Stairs/Walk up hill Past Surgical History Surgical History History of knee surgery Past Anesthesia History No Hx of Anesthesia Complications and No Family Hx of Anesthesia Complications History of PONV No Hx of PONV and No Hx of Motion Sickness Social History Smoking Status: Never smoker Do You Dip or Chew Tobacco: No Hx Alcohol Use: Yes Alcohol type: wine and hard liquor alcohol intake frequency: a few times a month Hx Substance Use: No substance use type: does not use Physical Exam Vital Signs Last Vital Signs Temp 98.6 F 06/30/19 07:13 Pulse 83 06/30/19 07:24 Resp 16 06/30/19 07:13 BP 112/70 06/30/19 07:13 Pulse Ox 98 06/30/19 07:13 ENMT Mouth: no dentition abnormality Thyromental Distance: > or= 3.5 Finger Breadths Mallampati Class: II Neck normal visual inspection Respiratory normal respiratory effort Auscultation: lungs clear to auscultation bilaterally Cardiovascular Rate/Rhythm: regular rate and regular rhythm Testing Laboratory Results 06/30/19 05:38 06/29/19 17:34 PT 11.3 Seconds (9.0-12.0) 06/29/19 17:34 INR 1.1 (0.9-1.1) 06/29/19 17:34 APTT 23.6 Seconds (21.0-31.0) 06/29/19 21:35 Urine Color Yellow 06/29/19 20:50 Urine Appearance Cloudy (Clear) A 06/29/19 20:50 Urine pH 5.0 (4.5-7.5) 06/29/19 20:50 Ur Specific [place] 1.012 (1.000-1.030) 06/29/19 20:50 Urine Protein Negative (Negative) 06/29/19 20:50 Urine Glucose (UA) Negative (Negative) 06/29/19 20:50 Urine Ketones Negative (Negative) 06/29/19 20:50 Urine Nitrite Negative (Negative) 06/29/19 20:50 Ur Leukocyte Esterase Negative (Negative) 06/29/19 20:50 Urine WBC (Auto) 1-5 /hpf (0-5) 06/29/19 20:50 Urine RBC (Auto) 0-4 /hpf (0-4) 06/29/19 20:50 U Hyaline Cast (Auto) 1-5 /lpf (0-5) 06/29/19 20:50 U Epithel Cells (Auto) 0-5 /lpf (0-5) 06/29/19 20:50 Urine Bacteria (Auto) Negative (Negative) 06/29/19 20:50 Blood Type O Negative 06/29/19 17:34 Antibody Screen NEGATIVE 06/29/19 17:34 06/29/19 Unknown WBC Smear - Final Stool
--- NOTE | 2019-06-30 09:39 | GI REPORT ---
Patient Name: Alicia Andrade Procedure Date: 06/30/2019 9:16 AM Date of : 1995 Admit Type: Inpatient Age: 23 Gender: Female Attending MD: Reji Chicas DO Procedure: Upper GI endoscopy Providers: Reji Chicas DO Referring MD: Gustavo Velez Indications: Acute post hemorrhagic anemia Medicines: Monitored Anesthesia Care Complications: No immediate complications. Estimated Blood Loss: Estimated blood loss: none. Procedure: Pre-Anesthesia Assessment: - Prior to the procedure, a History and Physical was performed, and patient medications and allergies were reviewed. The patient's tolerance of previous anesthesia was also reviewed. The risks and benefits of the procedure and the sedation options and risks were discussed with the patient. All questions were answered, and informed consent was obtained. Prior Anticoagulants: The patient has taken no previous anticoagulant or antiplatelet agents. ASA Grade Assessment: II - A patient with mild systemic disease. After reviewing the risks and benefits, the patient was deemed in satisfactory condition to undergo the procedure. After obtaining informed consent, the endoscope was passed under direct vision. Throughout the procedure, the patient's blood pressure, pulse, and oxygen saturations were monitored continuously. The Endoscope was introduced through the mouth, and advanced to the third part of duodenum. The upper GI endoscopy was accomplished without difficulty. The patient tolerated the procedure well. Findings: The esophagus was normal. A small hiatal hernia was present. One non-bleeding superficial gastric ulcer with no stigmata of bleeding was found in the gastric antrum. The lesion was 5 mm in largest dimension. Biopsies were taken with a cold forceps in the gastric antrum for Helicobacter pylori testing. The examined duodenum was normal. Impression: - Normal esophagus. - Small hiatal hernia. - Non-bleeding gastric ulcer with no stigmata of bleeding. - Normal examined duodenum. - Biopsies were taken with a cold forceps for Helicobacter pylori testing. Recommendation: - Return patient to [facility] for ongoing care. - Clear liquid diet. - Perform a colonoscopy tomorrow. - Await pathology results. Reji Chicas DO 06/30/2019 9:38:50 AM This report has been signed electronically. Note Initiated On: 06/30/2019 9:16 AM Number of Addenda: 0 I attest to the content of the Intraoperative Record and orders documented therein, exceptions below {[id number]}
--- NOTE | 2019-06-30 09:59 | Anesthesiology Progress Note ---
Date of Service June 30, 2019 Anesthesia Post Procedure Vital Signs Vital Signs: Temp Pulse Pulse Resp BP BP BP 06/30/19 09:48 88 20 122/80 06/30/19 09:33 96 H 22 111/52 L 06/30/19 09:06 98.1 F 97 H 18 136/85 06/30/19 07:24 83 06/30/19 07:13 98.6 F 98 H 16 112/70 06/30/19 03:12 98.6 F 105 H 16 109/69 06/30/19 02:55 98.2 F 102 H 18 111/72 06/30/19 01:55 99.0 F 105 H 17 107/71 06/30/19 01:25 99.7 F H 97 H 18 111/73 06/30/19 01:08 98.6 F 92 H 16 117/68 06/30/19 00:53 98.8 F 99 H 16 114/73 06/30/19 00:48 98.6 F 107 H 16 122/75 06/30/19 00:40 98.6 F 107 H 18 122/75 06/30/19 00:10 98.6 F 107 H 18 122/75 06/29/19 23:40 98.2 F 101 H 18 119/80 06/29/19 23:10 98.1 F 101 H 99 H 17 119/77 119/77 06/29/19 22:40 98.1 F 99 H 18 125/79 06/29/19 22:25 98.4 F 101 H 18 123/78 06/29/19 22:04 98.2 F 105 H 18 118/80 06/29/19 22:02 110 H 06/29/19 21:15 98.8 F 105 H 18 120/82 06/29/19 19:40 108 H 19 129/68 06/29/19 19:30 117 H 17 133/72 06/29/19 19:00 88 15 118/62 06/29/19 18:30 89 13 122/67 06/29/19 18:26 90 20 06/29/19 18:15 134 H 17 124/72 06/29/19 16:54 98.1 F 123 H 16 110/70 Pulse Ox 06/30/19 09:48 99 06/30/19 09:33 99 06/30/19 09:06 100 06/30/19 07:24 06/30/19 07:13 98 06/30/19 03:12 100 06/30/19 02:55 100 06/30/19 01:55 100 06/30/19 01:25 100 06/30/19 01:08 99 06/30/19 00:53 98 06/30/19 00:48 98 06/30/19 00:40 98 06/30/19 00:10 98 06/29/19 23:40 97 06/29/19 23:10 99 06/29/19 22:40 98 06/29/19 22:25 99 06/29/19 22:04 99 06/29/19 22:02 06/29/19 21:15 99 06/29/19 19:40 99 06/29/19 19:30 99 06/29/19 19:00 100 06/29/19 18:30 100 06/29/19 18:26 99 06/29/19 18:15 100 06/29/19 16:54 99 Transfer of Care Handoff Completed per policy Notes Mental Status: alert / awake / arousable and participated in evaluation Patient Amnestic to Procedure: Yes Nausea / Vomiting: adequately controlled Pain: adequately controlled Airway Patency, RR, SpO2: stable & adequate BP & HR: stable & adequate Hydration State: stable & adequate Anesthetic Complications: no major complications apparent and Pt Satisfied with anesthetic care
[2019-06-30] MEDS: PANTOprazole 40 MG in SYRINGE 0 ML IV SCH ×2 (12:10→20:47)
--- NOTE | 2019-06-30 14:39 | Electrocardiogram Report ---
Test Reason : Blood Pressure : / mmHG Vent. Rate : 109 BPM Atrial Rate : 109 BPM P-R Int : 130 ms QRS Dur : 070 ms QT Int : 338 ms P-R-T Axes : 044 073 047 degrees QTc Int : 455 ms Sinus tachycardia Otherwise normal ECG When compared with ECG of 29-JUN-2019 01:53, No significant change was found Confirmed by Sergio Ellis ([id number]) on 06/30/2019 2:39:10 PM Referred By: REFERRED SELF Confirmed By:Sergio Ellis
--- NOTE | 2019-06-30 16:18 | Anesthesiology Consultation ---
Date of Service June 30, 2019 Assessment & Plan (1) Encounter for pre-operative examination: Chart Review Chart Review: Acceptable Risk for Surgery and Patient NOT seen in Pre Admission Testing Consults Requested none History Surgery Operation Date: 06/30/19 08:30 Proposed Procedures p Esophagogastroduodenoscopy Dr Juan Francisco Priest Case, DO Operation Date: 07/01/19 07:30 Proposed Procedures p Colonoscopy Alicia Priest Case, DO Height/Weight Height: 5 ft 9 in Weight: 81.4 kg Allergies Allergy/AdvReac Type Severity Reaction Status Date / Time No Known Allergies Allergy Verified 06/29/19 17:51 Medications Home Medications Medication Instructions Recorded Confirmed Last Taken norethindrone-e.estradiol-iron 1 tab PO DAILY 06/29/19 06/29/19 Unknown [[place]ibel[place] 24 Fe] Active Medications Generic Name Dose Route Start Last Admin Trade Name Freq PRN Reason Stop Dose Admin Sodium Chloride 1,000 mls @ 125 mls/hr 06/29/19 21:14 06/30/19 14:31 Nss 1000ml IV 07/29/19 21:13 125 mls/hr .Q8H ELVIRA Administration Pantoprazole Sodium 40 mg/ 10 mls @ 5 mls/min 06/30/19 10:30 06/30/19 12:10 Syringe IV 07/30/19 10:29 5 mls/min BID ELVIRA Administration Miscellaneous 1 ea 06/30/19 00:00 06/30/19 15:37 Order Awaiting Action N/A 07/30/19 00:00 Not Given QS ELVIRA NPO Date Last Intake of Fluids: 06/29/19 Date Last Intake of Solids: 06/29/19 Time Last Intake of Solids: 10:00 Past Medical History Medical History No significant past medical history Exercise / Class Metabolic Activity II 4-5 Yardwork/Stairs/Walk up hill Past Surgical History Surgical History History of knee surgery History of third molar tooth extraction S/P ACL repair Past Anesthesia History No Hx of Anesthesia Complications and No Family Hx of Anesthesia Complications History of PONV No Hx of PONV and No Hx of Motion Sickness Social History Smoking Status: Never smoker Do You Dip or Chew Tobacco: No Hx Alcohol Use: Yes Alcohol type: wine and hard liquor alcohol intake frequency: a few times a month Hx Substance Use: No substance use type: does not use Physical Exam Vital Signs Last Vital Signs Temp 37.0 C 06/30/19 15:57 Pulse 106 H 06/30/19 15:57 Resp 18 06/30/19 15:57 BP 90/55 L 06/30/19 15:57 Pulse Ox 99 06/30/19 15:57 Testing Laboratory Results 06/30/19 05:38 06/29/19 17:34 PT 11.3 Seconds (9.0-12.0) 06/29/19 17:34 INR 1.1 (0.9-1.1) 06/29/19 17:34 APTT 23.6 Seconds (21.0-31.0) 06/29/19 21:35 Urine Color Yellow 06/29/19 20:50 Urine Appearance Cloudy (Clear) A 06/29/19 20:50 Urine pH 5.0 (4.5-7.5) 06/29/19 20:50 Ur Specific [place] 1.012 (1.000-1.030) 06/29/19 20:50 Urine Protein Negative (Negative) 06/29/19 20:50 Urine Glucose (UA) Negative (Negative) 06/29/19 20:50 Urine Ketones Negative (Negative) 06/29/19 20:50 Urine Nitrite Negative (Negative) 06/29/19 20:50 Ur Leukocyte Esterase Negative (Negative) 06/29/19 20:50 Urine WBC (Auto) 1-5 /hpf (0-5) 06/29/19 20:50 Urine RBC (Auto) 0-4 /hpf (0-4) 06/29/19 20:50 U Hyaline Cast (Auto) 1-5 /lpf (0-5) 06/29/19 20:50 U Epithel Cells (Auto) 0-5 /lpf (0-5) 06/29/19 20:50 Urine Bacteria (Auto) Negative (Negative) 06/29/19 20:50 Blood Type O Negative 06/29/19 17:34 Antibody Screen NEGATIVE 06/29/19 17:34 06/29/19 Unknown WBC Smear - Final Stool
--- NOTE | 2019-06-30 18:24 | Hospitalist Progress Note ---
Date of Service June 30, 2019 Assessment & Plan (1) Abdominal pain, diffuse: now improved. almost certainly relates to cause of bleeding (2) Bright red rectal bleeding: EGD negative, colo tomorrow. persists but definitely apperas to be slowing (3) Acute blood loss anemia: in the setting of rectal bleeding /lower GI bleeding -colo tomorrow to look for source -required 2 units PRBC transfusion; Hgb currently 8.1 (4) Lower gastrointestinal hemorrhage: (5) Syncope: almost certainly from acute blood loss anemia, although now hemodynamics are acceptable (6) DVT prophylaxis: pharmacologic contraindicated due to GI bleeding, ambulation/low risk overall for clotting (7) Discharge planning issues: further hospital plan contingent on colo findings and +/- any ongoing blood loss. anticipate home once able Admission and Anticipated Discharge Date Admission Date: June 29, 2019 Subjective feeling better overall - did have a bit more bloody BMs earlier today. not nearly as lightheaded as before but also has not been up and oob nearly as much either worried about bowel prep causing more bleeding - discussed that it will clear out blood that is already in intestines but won't actually provoke bleeding never had anything like this before- but does have chronic bloating/cramping type issues no bleeding prior no fam hx IBD that she's aware of Review of Systems Review of Systems: All systems reviewed & are unremarkable except as noted in HPI & below Physical Exam Physical Exam: gen aao pleasant nad heent nc at mmm breathing unlabored no accessory muscles good effort skin no rashes no pallor or icterus neuro no focal deficits Results & Data Results & Data ([facility]) Vital Signs (Past 12 Hours) Vital Signs Temp Pulse Pulse Pulse Resp BP Pulse Ox 06/30/19 17:54 91 H 06/30/19 15:57 98.6 F 106 H 18 90/55 L 99 06/30/19 11:20 98.2 F 95 H 16 115/80 99 06/30/19 10:03 96 H 20 130/79 100 06/30/19 09:48 88 20 122/80 99 06/30/19 09:33 96 H 22 111/52 L 99 06/30/19 09:06 98.1 F 97 H 18 136/85 100 06/30/19 07:24 83 06/30/19 07:13 98.6 F 98 H 16 112/70 98 PG Care Time/CCT Total # of Minutes Spent Total Time Spent with Patient: Total time spent is greater than 50% in coordination of care (as documented) at patient's floor/unit and/or counseling patient: Coding Level of Care Code 54892 Subseq Hosp Care Lvl 3 Diagnoses Abdominal pain, diffuse R10.84 Bright red rectal bleeding K62.5 Acute blood loss anemia D62 Lower gastrointestinal hemorrhage K92.2 Syncope R55 Syncope type: unspecified DVT prophylaxis Z29.9 Discharge planning issues Z02.9 (1) Syncope Syncope type: unspecified Qualified Code(s): R55 - Syncope and collapse
[2019-06-30] MEDS ORDERED: POLYETHYLENE (MIRALAX) 17 GM PACK PO ONE (20:00)
[2019-06-30] MEDS: ACETAMINOPHEN 325 MG TAB PO PRN (20:47)
--- NOTE | 2019-07-01 04:32 | Billing Data ---
Date of Service July 01, 2019 Coding Level of Care Code 57743 Initial Inpt Care Lvl 3
[2019-07-01] MEDS: SODIUM CHLORIDE 0.9% 1000ML 1,000 ML IV SCH ×3 (06:25→23:08)
[2019-07-01 06:52] LABS: Hematocrit (blood only) 23.3 % (37-47); Hemoglobin 8.1 g/dL (12.0-16.0)
[2019-07-01] MEDS ORDERED: ONDANSETRON INJ 2 MG/ML 2 ML VIAL ONE (07:08)
[2019-07-01] MEDS ORDERED: PROPOFOL IV EMULSION 10 MG/ML 20 ML VIAL IV ONE ×2 (07:08→07:53)
[2019-07-01] MEDS ORDERED: LIDOCAINE HCL 2% 2 ML VIAL/AMP(20MG/ML) INFIL ONE (07:08)
[2019-07-01] MEDS ORDERED: MIDAZOLAM HCL 1 MG/ML 2ML VIAL ONE (07:08)
--- NOTE | 2019-07-01 07:29 | Gastroenterology Progress Note ---
Date of Service July 01, 2019 Assessment & Plan (1) Acute blood loss anemia: (2) Lower gastrointestinal hemorrhage: Continue supportive care Proceed with Colonoscopy now Further recommendations will follow Admission and Anticipated Discharge Date Admission Date: June 29, 2019 Subjective Patient tolerated prep last night. She did have some hematochezia with prep. S he denies any fevers, chills, nausea, vomiting, hematemesis, or abdominal pain. She is not lightheaded or dizzy, and states, "I just want to get this over with." Review of Systems Review of Systems: All systems reviewed & are unremarkable except as noted in HPI & below Physical Exam Constitutional: WD/WN, vitals as above Respiratory: normal respiratory effort; no respiratory distress and no labored breathing Cardiovascular: Rate/Rhythm: regular rate and regular rhythm Gastrointestinal (Abdomen): normal bowel sounds, soft, nontender, no hepatosplenomegaly Results & Data Results & Data ([facility]) Vital Signs (Past 12 Hours) Vital Signs Temp Pulse Pulse Resp BP Pulse Ox 07/01/19 07:20 73 07/01/19 07:19 36.7 C 91 H 16 107/75 100 07/01/19 03:46 36.9 C 100 H 18 109/69 99 07/01/19 01:17 107 H 06/30/19 23:15 36.7 C 80 20 129/84 98 PG Care Time/CCT Total # of Minutes Spent Total Time Spent with Patient: Total time spent is greater than 50% in coordination of care (as documented) at patient's floor/unit and/or counseling patient: Coding Level of Care Code None Diagnoses Acute blood loss anemia D62 Lower gastrointestinal hemorrhage K92.2
[2019-07-01] MEDS ORDERED: fentaNYL citrate 100 MCG/2 ML VIAL ONE (07:50)
--- NOTE | 2019-07-01 08:24 | GI REPORT ---
Patient Name: Alicia Andrade Procedure Date: 07/01/2019 7:49 AM Date of : 1995 Admit Type: Inpatient Age: 23 Gender: Female Attending MD: Reji Chicas DO Procedure: Colonoscopy Providers: Reji Chicas DO Referring MD: Referred Self Indications: Hematochezia, Acute post hemorrhagic anemia Medicines: Monitored Anesthesia Care Complications: No immediate complications. Estimated Blood Loss: Estimated blood loss: none. Procedure: Pre-Anesthesia Assessment: - Prior to the procedure, a History and Physical was performed, and patient medications and allergies were reviewed. The patient's tolerance of previous anesthesia was also reviewed. The risks and benefits of the procedure and the sedation options and risks were discussed with the patient. All questions were answered, and informed consent was obtained. Prior Anticoagulants: The patient has taken no previous anticoagulant or antiplatelet agents. ASA Grade Assessment: II - A patient with mild systemic disease. After reviewing the risks and benefits, the patient was deemed in satisfactory condition to undergo the procedure. After I obtained informed consent, the scope was passed under direct vision. Throughout the procedure, the patient's blood pressure, pulse, and oxygen saturations were monitored continuously. The Colonoscope was introduced through the anus and advanced to the terminal ileum. The colonoscopy was performed without difficulty. The patient tolerated the procedure well. The quality of the bowel preparation was good. The terminal ileum, ileocecal valve, appendiceal orifice, and rectum were photographed. Findings: The perianal and digital rectal examinations were normal. A polypoid non-obstructing medium-sized mass was found in the cecum. The mass was partially circumferential. The mass measured three cm in length. In addition, its diameter measured thirty mm. Oozing was present. This was biopsied with a cold forceps for histology. Area was successfully injected with 3 mL of a 1:10,000 solution of epinephrine for hemostasis. Non-bleeding internal hemorrhoids were found during retroflexion. The hemorrhoids were small. 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 Biopsied. Injected. - Non-bleeding internal hemorrhoids. Recommendation: - Resume previous diet. - Continue present medications. - Repeat colonoscopy for surveillance based on pathology results. - Return to primary care physician as previously scheduled. Reji Chicas DO 07/01/2019 8:23:33 AM This report has been signed electronically. Note Initiated On: 07/01/2019 7:49 AM Number of Addenda: 0 I attest to the content of the Intraoperative Record and orders documented therein, exceptions below {[id number]}
--- NOTE | 2019-07-01 08:35 | Anesthesiology Progress Note ---
Date of Service July 01, 2019 Anesthesia Post Procedure Vital Signs Vital Signs: Temp Pulse Pulse Pulse Pulse Resp BP 07/01/19 08:30 92 H 14 121/71 07/01/19 08:21 36.4 C L 100 H 18 111/58 L 07/01/19 07:20 73 07/01/19 07:19 36.7 C 91 H 16 107/75 07/01/19 03:46 36.9 C 100 H 18 109/69 07/01/19 01:17 107 H 06/30/19 23:15 36.7 C 80 20 129/84 06/30/19 18:54 36.7 C 94 H 20 119/77 06/30/19 17:54 91 H 06/30/19 15:57 37.0 C 106 H 18 90/55 L 06/30/19 11:20 36.8 C 95 H 16 115/80 06/30/19 10:03 96 H 20 130/79 06/30/19 09:48 88 20 122/80 06/30/19 09:33 96 H 22 111/52 L 06/30/19 09:06 36.7 C 97 H 18 136/85 Pulse Ox 07/01/19 08:30 100 07/01/19 08:21 100 07/01/19 07:20 07/01/19 07:19 100 07/01/19 03:46 99 07/01/19 01:17 06/30/19 23:15 98 06/30/19 18:54 100 06/30/19 17:54 06/30/19 15:57 99 06/30/19 11:20 99 06/30/19 10:03 100 06/30/19 09:48 99 06/30/19 09:33 99 06/30/19 09:06 100 Pain Intensity Head: Pain Intensity: 9 Transfer of Care Handoff Completed per policy Notes Mental Status: alert / awake / arousable and participated in evaluation Nausea / Vomiting: adequately controlled Pain: adequately controlled Airway Patency, RR, SpO2: stable & adequate BP & HR: stable & adequate Hydration State: stable & adequate Anesthetic Complications: no major complications apparent and Pt Satisfied with anesthetic care
[2019-07-01] MEDS: PANTOprazole 40 MG in SYRINGE 0 ML IV SCH ×2 (09:03→21:12)
--- NOTE | 2019-07-01 14:42 | Hospitalist Progress Note ---
Date of Service July 01, 2019 Assessment & Plan (1) Colonic mass: biopsy taken path pending --concern on malignancy vs benign abnormal tissue ---> if malignant than would anticipate surgery in near future, almost certainly here ---> if benign would still need resected due to bleeding but possibly could be resectable by scope - in which case in d/w case would likely need to transfer to different facility d/w pt and then again w family - discussed surgery here vs elsewhere if needed; they are all comfortable (most importantly pt) with surgery here -- particularly with less COVID19 in [place] than in their home area; if scope needed and transfer needs to be facilitated, they would still prefer to do [place] vs [facility] for similar reasons case and i discussed and agree that with spontaneous bleeding that was severe enough to cause fairly dramatic drop in Hgb / require transfusion / cause syncope, she is really not safe to have this taken care of as an outpatient (2) Acute blood loss anemia: from above -required 2 units PRBC -currently clinically stable -continue to follow (3) Syncope: from blood loss - now stable, vitals good. follow (4) Bright red rectal bleeding: from colon mass. right now no s/s active bleeding, but since mass bled spontaneously - and enough to cause significant acute blood loss anemia and syncope - do not believe that she would be safe without medical supervision until source of bleed (ie mass) is remedied. keep on medical and follow clinically/follow periodic Hgb (5) DVT prophylaxis: ambulation *again as above noted approx 40mins face to face Admission and Anticipated Discharge Date Admission Date: June 29, 2019 Subjective feeling very anxious and emotional - pt seen right after colo when she was told about mass. extensive discussions with pt and answered all questions to the best of my ability and to her satisfaction. parents then arrived shortly after i left the room (allowed by special exemption given the circumstances of pt's situation) and so i revisited and updated them/answered all questions to the best of my ability and to their satisfaction as well. all told, ~40-45mins in the room divided between two different times, total was approx time in #1 probably [id number]; time in #2 probably 11-1120 other than feeling understandably anxious and upset about current situation, she had no other complaints d/w GI shortly after scope - input greatly appreciated Review of Systems Review of Systems: All systems reviewed & are unremarkable except as noted in HPI & below Physical Exam Physical Exam: gen aaox3 pleasantly anxious but otherwise nad heent nc at mmm breathing unlabored no accessory muscles good effort skin no rashes no pallor or icterus neuro no focal deficits Results & Data Results & Data ([facility]) Vital Signs (Past 12 Hours) Vital Signs Temp Pulse Pulse Pulse Resp BP Pulse Ox 07/01/19 11:45 98.1 F 84 16 115/87 98 07/01/19 08:40 98.2 F 97 H 16 121/71 100 07/01/19 08:30 92 H 14 121/71 100 07/01/19 08:21 97.5 F L 100 H 18 111/58 L 100 07/01/19 07:20 73 07/01/19 07:19 98.1 F 91 H 16 107/75 100 07/01/19 03:46 98.4 F 100 H 18 109/69 99 PG Care Time/CCT Total # of Minutes Spent Total Time Spent with Patient: Total time spent is greater than 50% in coordination of care (as documented) at patient's floor/unit and/or counseling patient: Coding Level of Care Code 99170 Subseq Hosp Care Lvl 3 Diagnoses Colonic mass K63.89 Acute blood loss anemia D62 Syncope R55 Syncope type: unspecified Bright red rectal bleeding K62.5 DVT prophylaxis Z29.9 (1) Syncope Syncope type: unspecified Qualified Code(s): R55 - Syncope and collapse
--- NOTE | 2019-07-01 14:56 | Billing Data ---
Date of Service July 01, 2019 Coding Level of Care Code 32116 Prolonged Care (int'l)
[2019-07-01] MEDS: ACETAMINOPHEN 325 MG TAB PO PRN (15:24)
[2019-07-02] MEDS: ACETAMINOPHEN 325 MG TAB PO PRN ×2 (05:52→13:31)
[2019-07-02] MEDS: SODIUM CHLORIDE 0.9% 1000ML 1,000 ML IV SCH ×3 (05:52→21:25)
[2019-07-02] MEDS: PANTOprazole 40 MG in SYRINGE 0 ML IV SCH ×2 (08:02→20:49)
--- NOTE | 2019-07-02 17:01 | Hospitalist Progress Note ---
Date of Service July 02, 2019 Assessment & Plan (1) Colonic mass: biopsy taken path pending --concern on malignancy vs benign abnormal tissue ---> if malignant than would anticipate surgery in near future, almost certainly here (NPO p midnight proactively) ---> if benign would still need resected due to bleeding but possibly could be resectable by scope - in which case in d/w dr gonzalez - would likely need to transfer to different facility 5/2 d/w pt and then again w family - discussed surgery here vs elsewhere if needed; they are all comfortable (most importantly pt) with surgery here -- particularly with less COVID19 in [place] than in their home area; if scope needed and transfer needs to be facilitated, they would still [place] [facility] for similar reasons dr gonzalez and i discussed and agree that with spontaneous bleeding that was severe enough to cause fairly dramatic drop in Hgb / require transfusion / cause syncope, she is really not safe to have this taken care of as an outpatient - fortunately no bleeding overnight (2) Acute blood loss anemia: from above -required 2 units PRBC -currently clinically stable -continue to follow periodic Hgb until source controlled (3) Syncope: from blood loss - now stable, vitals good. follow; no sx today (4) Bright red rectal bleeding: from colon mass. right now no s/s active bleeding, but since mass bled spontaneously - and enough to cause significant acute blood loss anemia and syncope - do not believe that she would be safe without medical supervision until source of bleed (ie mass) is remedied. keep on medical and follow clinically/follow periodic Hgb (5) Headache: agree w pt's presumption that it is probably lack of caffeine and liquid diet. no need for intervention or w/u at this time (6) DVT prophylaxis: ambulation Admission and Anticipated Discharge Date Admission Date: June 29, 2019 Subjective feeling ok - better overall today. no hematochezia does have a headache but relates it to lack of caffeine and clear liquid diet. otherwise is OK awaiting pathology Review of Systems Review of Systems: All systems reviewed & are unremarkable except as noted in HPI & below Physical Exam Physical Exam: gen aao pleasant nad heent nc at mmm breathing unlabored no accessory muscles good effort skin no rashes no pallor or icterus neuro cn 2-12 grossly intact gross motor appears intact mental status good recent and remote recall normal mood and affect fitting to the situation Results & Data Results & Data ([facility]) Vital Signs (Past 12 Hours) Vital Signs Temp Pulse Pulse Resp BP Pulse Ox 07/02/19 15:48 98.6 F 98 H 18 106/66 99 07/02/19 11:53 98.2 F 80 18 112/72 100 07/02/19 08:00 98.2 F 88 18 110/69 99 PG Care Time/CCT Total # of Minutes Spent Total Time Spent with Patient: Total time spent is greater than 50% in coordination of care (as documented) at patient's floor/unit and/or counseling patient: Coding Level of Care Code 75720 Subseq Hosp Care Lvl 3 Diagnoses Colonic mass K63.89 Acute blood loss anemia D62 Syncope R55 Syncope type: unspecified Bright red rectal bleeding K62.5 Headache R51 DVT prophylaxis Z29.9 (1) Syncope Syncope type: unspecified Qualified Code(s): R55 - Syncope and collapse
[2019-07-03 05:15] LABS: Basophils # (auto) 0.02 K/uL (0-0.2); Basophils % (auto) 0.4 %; Eosinophils # (auto) 0.12 K/uL (0-0.5); Eosinophils % (auto) 2.4 %; Hematocrit (blood only) 22.8 % (37-47); Hemoglobin 7.8 g/dL (12.0-16.0); Lymphocytes # (auto) 1.82 K/uL (1.2-3.4); Lymphocytes % (auto) 35.7 %; Mean Corpuscular Hemoglobin 31.1 pg (25-34); Mean Corpuscular Hgb Conc 34.2 g/dL (32-36); Mean Corpuscular Volume 90.8 fL (80-100); Mean Platelet Volume 9.6 fL (7.4-10.4); Monocytes # (auto) 0.48 K/uL (0.11-0.59); Monocytes % (auto) 9.4 %; Neutrophils # (auto) 2.66 K/uL (1.4-6.5); Neutrophils % (auto) 52.1 %; Platelet Count 167 K/uL (130-400); RDW Coefficient of Variation 12.9 % (11.5-14.5); RDW Standard Deviation 41.6 fL (36.4-46.3); Red Blood Count 2.51 M/uL (4.2-5.4)
[2019-07-03 05:32] LABS: RBC Morphology Unremarkable
[2019-07-03 05:39] LABS: BUN Creatinine Ratio 4.3 (10-20); Creatinine Clr Calc Pharmacy 117.7 ml/min; Potassium 3.4 mmol/L (3.5-5.1)
[2019-07-03] MEDS: SODIUM CHLORIDE 0.9% 1000ML 1,000 ML IV SCH ×2 (05:40→13:39)
[2019-07-03] MEDS: PANTOprazole 40 MG in SYRINGE 0 ML IV SCH ×2 (08:48→20:44)
[2019-07-03] MEDS: ACETAMINOPHEN 325 MG TAB PO PRN (10:53)
--- NOTE | 2019-07-03 13:20 | Gastroenterology Progress Note ---
Date of Service July 03, 2019 Assessment & Plan (1) Colonic mass: Recommend Surgery consultation for further recommendations regarding atypical mass which caused bleeding to the point of Syncope x2. Options are to receive 4 weeks of Prednisone with a taper with repeat colonoscopy or undergo cecal resection for definitive evaluation, as it did not appear typical of an inflammatory polyp. The family would like to discuss this further with a surgeon here, and possibly receive a second opinion. I discussed the case with Dr. Gunter, as well as Omid Gonzalez, PAC of surgery. Admission and Anticipated Discharge Date Admission Date: June 29, 2019 Subjective I spoke with Alicia, her mother, Corrina, who was at her bedside, and her father, Seng, via telephone today regarding the patient's recent colonoscopy with findings of an inflammatory mass. Pathology returned today showing chronic inflammation in the mass of the cecum. I reviewed the radiographic findings with Dr. Dimas, and pathology with Dr. Foster. Currently Alicia is feeling better. She denies any abdominal pain, lightheadedness, dizziness, or hematochezia. She has not attempted PO intake at this time, but would like to now. She has no further complaints. Review of Systems Review of Systems: All systems reviewed & are unremarkable except as noted in HPI & below Physical Exam Constitutional: WD/WN, vitals as above Respiratory: normal respiratory effort, lungs clear to auscultation Cardiovascular: RRR, no murmur, no edema Gastrointestinal (Abdomen): normal bowel sounds, soft, nontender, no hepatosplenomegaly Results & Data Results & [facility]) Vital Signs (Past 12 Hours) Vital Signs Temp Pulse Resp BP Pulse Ox 07/03/19 07:40 36.3 C L 76 16 99/61 L 98 PG Care Time/CCT Total # of Minutes Spent Total Time Spent with Patient: Total time spent is greater than 50% in coordination of care (as documented) at patient's floor/unit and/or counseling patient: Coding Level of Care Code 97705 Subseq Hosp Care Lvl 3 Diagnoses Colonic mass K63.89
--- NOTE | 2019-07-03 19:37 | Hospitalist Progress Note ---
Date of Service July 03, 2019 Assessment & Plan (1) Colonic mass: biopsy taken path does not confirm malignancy discussion is if HGb remains stable pt will be d/c to home with outpt follow up for repeat colonoscopy possible with colorectal specialisit (2) Acute blood loss anemia: from above -required 2 units PRBC (3) Syncope: from blood loss - now stable, vitals good. follow; no sx today (4) Bright red rectal bleeding: from colon mass. right now no s/s active bleeding, but since mass bled spontaneously - and enough to cause significant acute blood loss anemia and syncope - reportedly oozing at the time of colonoscopy (5) Headache: aresolved (6) DVT prophylaxis: ambulation, chemoprophylaxiz contraindicated Admission and Anticipated Discharge Date Admission Date: June 29, 2019 Subjective Pt is feeling better, she has had no additional bleeding, prolonged discussion with family and current plan of care will be to have pt d/c with out pt follow up in the [place] area, unless she rebleeds Review of Systems Review of Systems: Mild distress and fatigue no headache, blurry or double vision no speech or swallowing issues no chest pain, pressure or palpitations no shortness of breath, cough or wheezes no abdominal pain, nausea or vomiting, diarrhea or constipation no dysuria, hematuria or frequency no focal joint pain or swelling no back pain, CVA tenderness or radicular pain no bruising, bleeding or rashes no focal signs of weakness or numbness or altered sensation no complaints or anxiety or depression Physical Exam Physical Exam: The patient appeared well Vital signs as documented. Lungs are clear Extremities are nonedematous and both pedal pulses are normal. Neurologic exam is alert and oriented, no focal loss of strength or sensation Skin is without bruises or rashes Psychologically is without concerns for anxiety or depression Results & Data Results & Data ([facility]) Vital Signs (Past 12 Hours) Vital Signs Temp Pulse Pulse Resp BP Pulse Ox 07/03/19 15:13 98.2 F 78 16 118/76 100 07/03/19 07:40 97.3 F L 76 16 99/61 L 98 PG Care Time/CCT Total # of Minutes Spent Total Time Spent with Patient: Total time spent is greater than 50% in coordination of care (as documented) at patient's floor/unit and/or counseling patient: Coding Level of Care Code 13253 Subseq Hosp Care Lvl 2 Diagnoses Colonic mass K63.89 Acute blood loss anemia D62 Syncope R55 Syncope type: unspecified Bright red rectal bleeding K62.5 Headache R51 DVT prophylaxis Z29.9 (1) Syncope Syncope type: unspecified Qualified Code(s): R55 - Syncope and collapse
[2019-07-03] MEDS: POTASSIUM CHLORIDE 20 MEQ TABCR PO SCH (20:44)
[2019-07-04 06:10] LABS: Hemoglobin 8.7 g/dL (12.0-16.0); Mean Corpuscular Hemoglobin 30.9 pg (25-34); Mean Corpuscular Hgb Conc 33.5 g/dL (32-36); Mean Corpuscular Volume 92.2 fL (80-100); Mean Platelet Volume 9.6 fL (7.4-10.4); Platelet Count 209 K/uL (130-400); RDW Coefficient of Variation 13.2 % (11.5-14.5); RDW Standard Deviation 43.1 fL (36.4-46.3); Red Blood Count 2.82 M/uL (4.2-5.4)
[2019-07-04] MEDS: POTASSIUM CHLORIDE 20 MEQ TABCR PO SCH (08:20)
[2019-07-04] MEDS: PANTOprazole 40 MG in SYRINGE 0 ML IV SCH (08:20)
--- NOTE | 2019-07-04 10:04 | Gastroenterology Progress Note ---
Date of Service July 04, 2019 Assessment & Plan (1) Colonic mass: (2) Acute blood loss anemia: No overt GI bleeding H/H Stable Patient will seek second opinion in [place] Recommend Continuing Pantoprazole 40 mg by mouth each morning 1/2 hour prior to breakfast. Short Steroid Taper: Prednisone 40 mg daily for 1 week, then 30 mg daily for 1 week, then 20 mg daily for 1 week, then 10 mg daily for 1 week, then discontinue. I informed her that she should followup with Gastroenterology and Surgery in [place] for their opinion. At the very least she should have repeat colonoscopy in 1 month for further evaluation of mass in cecum, which does not have the routine appearance of a inflammatory polyp. Admission and Anticipated Discharge Date Admission Date: June 29, 2019 Subjective Alicia feels much better today. She denies any abdominal pain, nausea, vomiting, diarrhea, hematemesis, melena or hematochezia. She has been tolerating PO intake. She has not had a BM in the past 2 days. She has no further complaints. Review of Systems Review of Systems: All systems reviewed & are unremarkable except as noted in HPI & below Physical Exam Constitutional: WD/WN, vitals as above Eyes: PERRL, conjunctivae normal, anicteric sclerae ENMT: external ear and nose normal, oropharynx normal Neck: trachea midline, no thyromegaly Respiratory: normal respiratory effort; no respiratory distress and no labored breathing Gastrointestinal (Abdomen): normal bowel sounds, soft, nontender, no hepatosplenomegaly Skin: no rashes, warm and dry Psychiatric: A+Ox3, euthymic affect Results & Data Results & Data ([facility]) Vital Signs (Past 12 Hours) Vital Signs Temp Pulse Pulse Resp BP BP Pulse Ox 07/04/19 09:29 36.8 C 77 79 16 100/68 114/68 99 07/04/19 07:29 36.8 C 79 16 100/68 99 07/03/19 23:06 36.8 C 77 16 114/68 100 PG Care Time/CCT Total # of Minutes Spent Total Time Spent with Patient: Total time spent is greater than 50% in coordination of care (as documented) at patient's floor/unit and/or counseling patient: Coding Level of Care Code 39511 Subseq Hosp Care Lvl 3 Diagnoses Colonic mass K63.89 Acute blood loss anemia D62
--- NOTE | 2019-07-04 15:02 | Discharge Summary ---
Date of Service July 04, 2019 Admission HPI Per Admitting Provider Alicia Andrade is a 23 year old woman with a past medical history significant only for a torn ACL which was operated on without incident and heavy periods which were corrected several years ago by going on control pill. She is here today for rectal bleeding. Last night around eight o clock she was in in her usual state of health when she had an episode of abdominal pain across the entirety of her abdomen. She tried to sleep it off but woke up around 11 pm and went to the bathroom. She then suffered a syncopal episode and felt very light headed continuously on getting up. When she made it to the bathroom she felt nauseous and like she had diarrhea, but when she checked the toilet bowl it was a large amount of blood. Her abdominal pain was relieved by this passage and she came into the emergency department. Hemoglobin was found to be in the 10's and in the high nines a short time later and she was sent home with planned GI follow up. CT abdomen was negative. She then had a subsequent bloody bowel movem ent today and continues to feel lightheaded on standing. She denies any anal intercourse or penetration nor any vaginal intercourse, no vaginal bleeding, last menstruation was one month ago due for next tomorrow. No history of bleeding or dark stools ever before. No known history of hemorrhoids. She denies any other symptoms at this time, no abdominal pain, no nausea, no vomiting, no trouble with her breathing, fever, chills, no chest pain, no leg or hand swelling, no change in her urination, no hematuria, no bruising or other bleeding, no history of bleeding issues. Principal Diagnosis acute blood loss anemia syncope cecal mass biopsy negative for malignancy Discharge Exam The patient appeared well Vital signs as documented. Lungs are clear to auscultation and percussion. Cardiac exam, Rhythm is regular.. No murmurs, rubs or gallops. Abdominal exam reveals normal bowel sounds, soft non tender, no masses Extremities are nonedematous and both pedal pulses are normal. Neurologic exam is alert and oriented, no focal loss of strength or sensation Skin is without bruises or rashes Psychologically is without concerns for anxiety or depression Discharge Data Allergies Allergy/AdvReac Type Severity Reaction Status Date / Time No Known Allergies Allergy Verified 04/30/20 17:51 Consultations 06/29/19 19:04 ED Decision to Admit Stat 06/30/19 08:00 Consult Gastroenterology Routine 07/04/19 10:22 Burn CD for patient Stat Procedures Performed Operation Date: 06/30/19 08:30 Actual Procedures p EGD Biopsy Cytology - Reji Priest Case, DO Operation Date: 07/01/19 07:30 Actual Procedures p Colonoscopy(Not Applicable) - Reji Priest Case, DO Hospital Course (1) Colonic mass: biopsy taken path does not confirm malignancy On the day of discharge the patient's hemoglobin had remained stable she was discharged in the company of her mother CT abd/pelvis :IMPRESSION: 1. No acute abdominal or pelvic findings 2. No evidence of bowel obstruction. No evidence of free air 3. No evidence of acute appendicitis. No evidence of acute diverticulitis. Biopsy colon FINAL DIAGNOSIS COLON, CECAL MASS, BIOPSY: - INFLAMMATORY POLYP - NEGATIVE FOR DYSPLASIA AND MALIGNANCY (2) Acute blood loss anemia: from above -required 2 units PRBC (3) Syncope: from blood loss - now stable, vitals good. follow; no sx on day of discharge (4) Bright red rectal bleeding: from colon mass. right now no s/s active bleeding, but since mass bled spontaneously - and enough to cause significant acute blood loss anemia and syncope - reportedly oozing at the time of colonoscopy did have epi injection (5) Headache: aresolved Total Time Total Time Spent Total Time Spent (In Minutes): greater than 30 minutes spent Discharge Plan Discharge Items Patient Disposition: Home - Self-Care Reason For Visit: GI BLEED Discharge Diagnosis: lower gi bleed, cecal mass, biopsy negative at discharge Activity: Resume your previous activity Non-emergency contact: Primary Care Provider, Surgeon and Rn Surgery Call non-emergency contact if: you have any medication questions Follow-up/Referrals: PCP,NO [Primary Care Provider] - Diet: Low Fiber Diet Comment: low fiber for one week then resume regular diet Addtl Attending Provider Instructions: please do not use aspirin or ibuprofen, you may use tylenol for pain if needed low fiber diet for one week then may resume typical diet, unless otherwise instructed by physician please take a multiple vitamin with iron( or even a vitamin) to help you replete your blood loss please arrange follow up with a physician in your area that can re evaluate your colon in the next few weeks Pending Studies at Discharge: No Stand-Alone Forms: My [facility], Smoking Cessation Medications and DC Order Prescriptions: Continued norethindrone-e.estradiol-iron [Mibelas 24 Fe] 1 mg-20 mcg(24) /75 mg (4) tablet,chewable 1 tab PO DAILY RF: 0 Discharge Orders: Discharge Order (Routine); Ordered 07/04/19 Ordered By: Everardo Hammond/Other Patient Handouts: Diet Low Residue Admission Data Admit Date/Time: 06/29/19 19:59 Attending Provider: Everardo Gunter Admit Provider: Raymond Valerio Primary Care Provider: PCP,NO Other Providers: Amauri Pierre ; Reji Chicas Other Interventions: Discharge Summary Assessment (RN) Last Done: 07/04/19 09:29 DC Date/Time DO NOT enter until pt leaves facility: 07/04/19 11:32 Coding Level of Care Code D/C Day Management >30 mins Diagnoses Colonic mass K63.89 Acute blood loss anemia D62 Syncope R55 Syncope type: unspecified Bright red rectal bleeding K62.5 Headache R51
== END 2019-07-04 11:32 | disposition home or self-care (01) | DRG 378 ==
LOC: ED 16:46 → SUATTDRO 19:59 → 2N 19:59 → 3E 07-02 21:02